=== PATIENT | female | born 2000 | race Caucasian/White ===

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

== ENCOUNTER 2022-04-06 19:49 | Emergency (ER) | payer BC, SELFPAY ==
[2022-04-06 20:53] VITALS: BP 0/0; PULSE 0; RESP 0; TEMP -17.7; TEMP 0; O2SAT 0
== END 2022-04-06 20:54 | disposition left against medical advice (07) ==
LOC: ER 20:44
PROVIDERS: Emergency Provider Emergency Medicine
DX: S61.052A Open bite of left thumb without damage to nail, initial encounter (principal); Z53.21 Procedure and treatment not carried out due to patient leaving prior to being seen by health care provider
CPT/HCPCS: 99211

== ENCOUNTER → 2022-07-29 14:54 | Outpatient (CLI) | payer BC, SELFPAY ==
--- NOTE | 2022-07-29 15:00 | US_ITS ---
FINAL REPORT CLINICAL HISTORY: pelvic pain and IUD surveillance FINDINGS: Transvaginal sonographic images of the pelvis were obtained. The uterus measures 8.1 x 4.7 x 3.3 cm. The endometrium measures 7 mm, which is within normal limits. An IUD is present within the endometrium. The right ovary measures 3.6 cm in length and left ovary measures 3.1 cm in length. Normal blood flow seen to the ovaries. Multiple small follicles are present in both ovaries which may represent PCOS. There is no evidence of free fluid. IMPRESSION: IUD present within the endometrium. Multiple small follicles in both ovaries may represent PCOS. Reviewed, Interpreted and Dictated by Cruz Rodriguez III, MD Transcribed by Ade Jacques Authenticated and [facility]
== END ==
PROVIDERS: PCP Obstetrics & Gynecology; Visit Provider Obstetrics & Gynecology
DX: R10.2 Pelvic and perineal pain (principal); Z30.431 Encounter for routine checking of intrauterine contraceptive device
CPT/HCPCS: 76830

== ENCOUNTER 2023-07-27 11:40 | Outpatient (CLI) | payer BC, SELFPAY ==
[2023-07-27 12:57] LABS: HCG,Quantitative 24 mIU/ml (0-5.42)
[2023-07-28 08:30] LABS: Progesterone 7.6 ng/mL (.)
== END 2023-07-27 23:59 | disposition home or self-care (01) ==
PROVIDERS: Visit Provider Obstetrics & Gynecology
DX: N92.6 Irregular menstruation, unspecified (principal)
CPT/HCPCS: 36415; 84144; 84702

== ENCOUNTER 2023-07-29 11:12 | Outpatient (CLI) | payer BC, SELFPAY ==
[2023-07-29 12:56] LABS: HCG,Quantitative 21 mIU/ml (0-5.42)
== END 2023-07-29 23:59 ==
PROVIDERS: Visit Provider Obstetrics & Gynecology
DX: O03.9 Complete or unspecified spontaneous abortion without complication (principal); Z32.00 Encounter for pregnancy test, result unknown
CPT/HCPCS: 36415; 84702

== ENCOUNTER 2023-08-02 11:31 | Outpatient (CLI) | payer BC, SELFPAY ==
[2023-08-02 12:34] LABS: HCG,Quantitative < 2 mIU/ml (0-5.42)
== END 2023-08-02 23:59 | disposition home or self-care (01) ==
PROVIDERS: Visit Provider Obstetrics & Gynecology
DX: O03.9 Complete or unspecified spontaneous abortion without complication (principal)
CPT/HCPCS: 36415; 84702; 86900; 86901

== ENCOUNTER 2023-09-14 09:21 | Outpatient (CLI) | payer BC, SELFPAY ==
[2023-09-14 11:39] LABS: HCG,Quantitative 201 mIU/ml (0-5.42)
[2023-09-15 08:28] LABS: Progesterone 17.4 ng/mL (.)
== END 2023-09-14 23:59 | disposition home or self-care (01) ==
LOC: LAB 09:21
PROVIDERS: Visit Provider Obstetrics & Gynecology
DX: Z32.00 Encounter for pregnancy test, result unknown (principal)
CPT/HCPCS: 84144; 84702

== ENCOUNTER 2023-09-16 08:50 | Outpatient (CLI) | payer BC, SELFPAY ==
[2023-09-16 10:14] LABS: HCG,Quantitative 462 mIU/ml (0-5.42)
== END 2023-09-16 23:59 | disposition home or self-care (01) ==
LOC: LAB 08:51
PROVIDERS: PCP Nurse Practitioner; Visit Provider Obstetrics & Gynecology
DX: Z32.00 Encounter for pregnancy test, result unknown (principal)
CPT/HCPCS: 36415; 84702

== ENCOUNTER 2024-01-03 12:49 | Outpatient (CLI) | payer MEDICAID, SELFPAY ==
--- NOTE | 2024-01-03 12:49 | US_ITS ---
PROCEDURE: US OB /MATERNAL DETAIL CLINICAL INDICATION: 20 week anatomy scan COMPARISON: No exams were available for comparison FINDINGS: Transabdominal sonographic images of the pelvis were obtained. From her established due date she is 20 weeks 0 days. Single viable intrauterine gestation. Breech position. Placenta: Anteriorplacenta grade 1. There is an average amount of fluid. The cervix appears satisfactory. Closed and measuring 3.1 cm in length. Complete survey performed and was unremarkable on the submitted images as in PACS. No discrete anomalies identified on survey imaging by technologist. Active fetus. Three-vessel cord with satisfactory umbilical cord insertion. 4- chamber heart noted. Situs, aortic arch, LVOT, RVOT, three-vessel view appear normal. Survey of brain & ventricles Unremarkable. Cerebellum, thalamus, choroid plexus, cisterna magna appear normal. Face and neck survey unremarkable. Profile, nasion, lips and nose appeared normal. Diaphragm and chest views unremarkable. Abdomen: Both kidneys noted and unremarkable. Stomach and bladder noted and satisfactory. Spine: Survey of the spine satisfactory with no anomalies identified nor imaged. Cervical, thoracic, lower spine appear normal. Both arms and legs noted. Amniotic Fluid: Adequate. MVP 5.37 cm. Measurements: Average ultrasound age 20weeks 4days. Estimated due date by ultrasound age 0105/18/2024. Estimated weight 355g BPD = 20weeks 6days HC = 20weeks 2days AC = 21weeks 2days FL = 19weeks 4days Growth Percentile= 72 Heart Rate = 143bpm Cerebellum = 19weeks 1day Humerus = 21weeks HC/AC is 1.1 FL/BPD is 0.63 FL/AC is 0.19 IMPRESSION: 1. Viable fetus in the breech presentation with an anterior placenta grade 1. 2. The fluid is within normal limits with an MVP 5.37 cm. 3. Anatomical scan appears normal. 4. biometry is consistent with the dates. Dictated by: Kalpesh Sethi MD 01/04/2024 08:18 Kalpesh Sethi MD in OV 01/04/2024 08:18
== END 2024-01-03 23:59 | disposition home or self-care (01) ==
LOC: RAD 12:49
PROVIDERS: PCP Nurse Practitioner; Visit Provider Obstetrics & Gynecology
DX: Z36.89 Encounter for other specified antenatal screening (principal); Z3A.20 20 weeks gestation of pregnancy
CPT/HCPCS: 76811

== ENCOUNTER 2024-02-28 09:56 | Outpatient (CLI) | payer MEDICAID, SELFPAY ==
[2024-02-28 10:27] LABS: Basophils % 0.3 % (0.1-2.0); Eosinophils # 0.1 K/mm3 (0.0-0.4); Eosinophils % 1.2 % (0.1-12.0); Hematocrit 36.5 % (37.0-47.0); Hemoglobin 12.9 g/dL (12.2-16.2); Lymphocytes # 1.5 K/mm3 (0.7-4.5); Lymphocytes % 14.2 % (10-50); Mean Corpuscular HGB Conc 35.3 g/dL (31.8-35.4); Mean Corpuscular Hemoglobin 30.4 pg (27.0-31.2); Mean Corpuscular Volume 86.3 fl (81-99); Mean Platelet Volume 8.7 fl (7.4-10.4); Monocytes # 0.4 K/mm3 (0.1-1.0); Monocytes % 3.8 % (1.7-9.3); Neutrophils # 8.7 K/mm3 (1.8-7.8); Neutrophils % 80.4 % (37.0-80.0); Platelet Count 236 K/mm3 (142-424); Red Blood Count 4.23 M/mm3 (4.20-5.40); Red Cell Distribution Width 13.3 % (11.5-17.5); White Blood Count 10.8 K/mm3 (4.8-10.8)
[2024-02-28 10:50] LABS: Glucose,Fasting 110 mg/dl (74-100)
[2024-02-28 12:18] LABS: Glucose 1 Hour 120 mg/dL (74-100)
[2024-02-29 13:34] LABS: Rapid Plasma Reagin Ab Titer Non Reactive titer (NonRea<1:1)
== END 2024-02-28 23:59 | disposition home or self-care (01) ==
LOC: LAB 09:57
PROVIDERS: PCP Nurse Practitioner; Visit Provider Obstetrics & Gynecology
DX: Z34.90 Encounter for supervision of normal pregnancy, unspecified, unspecified trimester (principal)
CPT/HCPCS: 36415; 82951; 85025; 86593